=== PATIENT | male | born 1990 | race Caucasian/White ===

== ENCOUNTER 2019-04-08 18:51 | Emergency (ER) | payer SELFPAY ==
[2019-04-08 18:52] VITALS: BP 153/90; PULSE 96; RESP 18; TEMP 37.3; O2SAT 99; BMI 20.5
--- NOTE | 2019-04-08 19:18 | ED.DCSUM_ITS ---
- ER Visit Summary Date of Service: 04/08/19 Chief Complaint: Rash History of Present Illness: The patient is a 28 M with a rash at the base of his penis. It is painful and he is swollen glands. He denies any other symptoms. Physical Examination: Patient is a vesicular rash to the base of his penis on the right side. Mild tender lymphadenopathy bilaterally in the inguinal region. Otherwise exam is unremarkable. Test Results: Herpes testing pending. Emergency Department Course and Treatment: Patient treated with acyclovir and Vincent. Follow-up with primary care. Treatment Plan: As above Disposition: Discharge Impression: Vesicular penile rash This note was generated with [employer] dictation software. It may contain incorrect words, spelling, and punctuation that were not noted in review of the chart prior to signing ED Disposition - Plan for ED Patient: Referrals: Care Physician,No Primary [Primary Care Provider] -
--- NOTE | 2019-04-08 19:19 | ED.DEP ---
ED Disposition - Plan for ED Patient: Instructions: Herpes: Caring for Sores Prescriptions: Acyclovir 1 tab PO TID #30 tab Prescription Printed Hydrocodone Bitart/Apap 5-325 [[place] 5MG-325MG] 1 tab PO Q6H PRN PRN 3 Days #10 tab PRN Reason: Pain Prescription Printed Referrals: Diana Ko [NON-STAFF] -
[2019-04-08] MEDS: Acyclovir 200 MG Capsule 400 MG PO (19:33)
[2019-04-08] MEDS: HYDROcodone Bitartrate/Apap 5/325 Tablet PO (19:33)
--- NOTE | 2019-04-12 21:02 | ED.RN ---
called patient and left message to please call to the er for test results
== END 2019-04-08 19:44 | disposition home or self-care (01) ==
PROVIDERS: Emergency Provider Emergency Medicine
DX: R23.8 Other skin changes (principal); R59.9 Enlarged lymph nodes, unspecified
CPT/HCPCS: 87255; 99283